=== PATIENT | female | born 1950 | race Caucasian/White ===

== ENCOUNTER → 2019-11-06 11:30 | Outpatient (BNVA) | payer MEDICARE, OTHER, SELFPAY | PROVIDERS: Visit Provider Obstetrics & Gynecology | DX: N81.10 Cystocele, unspecified (principal) | CPT/HCPCS: 80053; 81001; 87077; 87086; 87184 ==

== ENCOUNTER 2020-01-09 13:12 | Observation (INO) | payer MEDICARE, OTHER, SELFPAY ==
[2020-01-07 10:32] LABS: Coronavirus Lab Test PTC Negative
[2020-01-09] VITALS (18 sets, daily range): BP systolic 89–147; BP diastolic 47–77; PULSE 59–75; RESP 16–24; TEMP 36.1–37.2; O2SAT 93–100; BMI 27.4
--- NOTE | 2020-01-09 07:58 | P.HPUD_ITS ---
Surgery/Procedure H&P Update DATE OF PROCEDURE: January 09, 2020 DATE H&P PERFORMED: 12/23/19 H&P UPDATE INFORMATION: I have reviewed H&P completed within last 30 days, I have examined patient prior to procedure, No changes to prior documentation and H&P is in [facility] EMR on date indicated PLANNED PROCEDURE: Operation Date: 01/09/20 08:00 Proposed Procedures p Total Vaginal Hysterectomy [id number], 85674, 75947, 11280 N81.4(Not Applicable) - Bhavna Thompson MD s Anterior Repair(Not Applicable) - Bhavna Thompson MD s Posterior Repair(Not Applicable) - Bhavna Thompson MD s Laparoscopic Uterosacral Ligament Suspen(Not Applicable) - Bhavna Qiu MD s Cystoscopy(Not Applicable) - Bhavna Thompson MD s Suprapubic Catheter Placement(Not Applicable) - Bhavna Thompson MD s Salpingo-Oophorectomy (Vaginal)(Bilateral) - Bhavna Thompson MD
--- NOTE | 2020-01-09 08:00 | ANES.PREANE2 ---
Pre-Anesthetic Assessment Pre-Anesthetic Assessment: Height/Weight: Height 1.63 m Weight 72.575 kg Temp Pulse Resp BP Pulse Ox 97.8 F 73 18 147/77 98 01/09/20 06:51 01/09/20 06:51 01/09/20 06:51 01/09/20 06:51 01/09/20 06:51 Proposed Procedure: Operation Date: 01/09/20 08:00 Proposed Procedures p Total Vaginal Hysterectomy [id number], 05208, 87379, 63292 N81.4(Not Applicable) - Bhavna Thompson MD s Anterior Repair(Not Applicable) - Bhavna Thompson MD s Posterior Repair(Not Applicable) - Bhavna Thompson MD s Laparoscopic Uterosacral Ligament Suspen(Not Applicable) - Bhavna Thompson MD s Cystoscopy(Not Applicable) - Bhavna Thompson MD s Suprapubic Catheter Placement(Not Applicable) - Bhavna Thompson MD s Salpingo-Oophorectomy (Vaginal)(Bilateral) - Bhavna Thompson MD Was Beta Marli taken within 24 hours: N/A Last intake: Intake Last Liquid Date 01/08/20 Last Liquid Time 20:00 Last Solid Date 01/08/20 Social: Social History: No alcohol and No tobacco Exam: Pre-Anes Outpt Exam: alert, oriented x 3, clear to auscultation bilaterally and regular rate & rhythm Airway: Submandibular: Other (receeding mandible) Cervical ROM: WNL Pulmonary: Pulmonary: None reported CV/HEM: CV/HEM: HTN : : None reported Hepatic: Hepatic: None reported GI: GI: None reported Metabolic: Metabolic: None reported Musc/skel: Musc/skel: None reported Neuropsych: Neuropsych: None reported Anesthetic Plan: ASA status: 2 Anesthesia: General PFSH Anesthesia PFSH: Medical History (Updated 12/23/19 @ 16:25 by José Miguel Menjivar MD) Hypertension Diagnosed in her 50s and is controlled with medication. No pertinent past medical history Denies history of: lung, liver, kidney, thyroid, heart or kidney problems, diabetes, DVT/PE, bleeding or clotting disorders. PCP: MARTHA Jackson Surgical History Hx of sinus surgery In 1995 S/P cholecystectomy Laparoscopic procedure in 2013 S/P knee surgery bilateral knee surgery for meniscus tear in 2014 and 2015. Status post tubal ligation 1982- procedure. 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 Data Anesthesia CBC & Chem 7: 01/09/20 07:18 01/09/20 07:18 Other Labs: Laboratory Results - last 48 hr 01/06/20 11:45 Nasal/Oral COVID-19 PCR Negative Cardiac Studies: No Data to Display
[2020-01-09 08:02] LABS: Basophils # 0.1 10^3/uL (0.0-0.1); Basophils % 0.9 %; Eosinophils # 0.2 10^3/uL (0.0-0.8); Eosinophils % 3.1 %; Hematocrit 43.1 % (37.0-47.0); Hemoglobin 13.6 g/dL (11.5-15.3); Lymphocytes % 14.5 %; Mean Corpuscular HGB Conc 31.6 g/dL (30.0-36.0); Mean Corpuscular Hemoglobin 29.1 pg (28.0-34.0); Mean Corpuscular Volume 92.1 fL (81-99); Mean Platelet Volume 10.9 fL (7.4-10.4); Monocytes # 0.5 10^3/uL (0.2-0.9); Neutrophils # 5.07 10^3/uL (1.8-7.7); Neutrophils % 74.1 %; Nucleated Red Blood Cells % 0 %; Platelet Count 215 10^3/cmm (130-400); Red Blood Count 4.68 10^6/uL (4.1-5.3); Red Cell Distribution Width 13.2 % (12.1-15.1); White Blood Count 6.8 10^3/uL (4.0-10.0)
[2020-01-09 08:12] LABS: Alanine Aminotransferase 13 U/L (0-33); Albumin Level 4.5 g/dL (3.5-5.2); Alkaline Phosphatase 120 IU/L (35-105); Aspartate Amino Transferase 28 U/L (0-32); Blood Urea Nitrogen 17 mg/dL (8-23); Calcium 9.5 mg/dL (8.5-10.5); Carbon Dioxide 25 mmol/L (22-29); Chloride 105 mmol/L (98-107); Creatinine Clr Calc Pharmacy 62.9775; Globulin 3.2 g/dL (1.3-4.6); Glucose 121 mg/dL (65-115); Osmolality Calculated 292 mOsm/kg (285-295); Sodium 142 mmol/L (136-145); Total Protein 7.7 g/dL (6.6-8.7)
[2020-01-09] MEDS: cetylpyridinium Lozenge 1 EACH MUCOUS MEM (08:29)
--- NOTE | 2020-01-09 08:30 | SUR.PREOP ---
pyridium 200mg po given at 0829
[2020-01-09] MEDS: clindamycin 900 MG/50 ML PREMIX 100 MG IV (08:40)
[2020-01-09] MEDS: vasopressin 20 unit/mL INJ INJECTION ×2 (09:00→12:15)
--- NOTE | 2020-01-09 09:13 | SUR.OPER ---
Called and notified Daughter of surgical progress.
--- NOTE | 2020-01-09 10:19 | SUR.OPER ---
Called and left message for daughter with surgery progress update.
--- NOTE | 2020-01-09 12:43 | PM.OP ---
Operative Report Date of procedure: January 09, 2020 Pre-op Diagnosis: Complete uterovaginal prolapse with enterocele Post-op Diagnosis: Complete uterovaginal prolapse with enterocele Procedure Done: Colpopexy-intraperitoneal vaginal approach (uterosacral ligament suspension), Posterior colporrhaphy, Cystoscopy with temporary bilateral ureteral stents, Suprapubic catheter insertion. Surgeon: José Miguel Menjivar Marketing Communications Leader: Bhavna Thompson Anesthesia: General Estimated blood loss (mL): 150 IV fluids (mL): 1,800 Complications: None Findings: Complete uterovaginal prolapse with enterocele present. Sigmoidal adhesions along the left pelvic sidewall. Brief History: Patient is a 69-year-old white female 4, para 2-0-2-2 who is postmenopausal. She presented to the office due to vaginal prolapse. She was evaluated by Dr. Irby and was diagnosed with complete uterovaginal prolapse. I then evaluated her on 12/23/[address] Irby not performing all of the procedures that patient needed done. As a result we will both be performing a portion of the surgery and assisting with the other. Procedure: Patient was taken to the operating room where general anesthesia was obtained. She was prepped and draped in usual sterile fashion in dorsal supine position with legs in Gamaliel style stirrups. Sequential compression boots been placed prior to starting the case. Patient was evaluated under anesthesia and noted to have a complete uterovaginal prolapse. Dr. Irby initially performed a vaginal hysterectomy with right salpingo-oophorectomy. I was present and assisted her with this portion of the case. Patient was then turned over to myself with Dr. Irby assisting me. Cystoscopy was performed after the hysterectomy due to the degree of prolapse. Both ureters were identified as effluxing well with indigo carmine being used intravenously. No bladder masses were noted. Trabeculations of the bladder was noted. Due to the degree of prolapse and inability to identify uterosacral ligaments, decision was made to place temporary ureteral stents for ureter identification. A guidewire was passed through the ureteral meatus and passed up through the ureter. An open end ureteral access catheter size 6 Angolan stent was passed over the guidewire and the and left out of the urethra. This was repeated on the contralateral side in a similar fashion. Cystoscope was removed and Thomas catheter reinserted. On the right side, ureter was identified by palpating the ureter with stent present. Posterior to this in the area of the uterosacral ligament, high in the pelvis, the tissue was grasped with an Allis clamp. 0 Ethibond suture was passed through this tissue and with tension good support was noted to the stitch. The suture was then held. On the left side, the ureter was identified. However, at the level of the of the 0 Ethibond suture to be placed in the uterosacral ligament, sigmoid bowel was noted to be adherent along the pelvic sidewall and as a result decision was made not to place uterosacral ligament suspension stitch on the left side. Case was turned back over to Dr. Irby who performed the anterior vaginal repair. Case was turned back over to myself. At this point an enterocele repair was performed. A wedge shaped area was excised along the posterior vaginal cuff including the vaginal mucosa and the internal peritoneum. This was all reapproximated using 0 Vicryl suture in a running fashion. This significantly narrowed the posterior cuff. The remaining portion of the posterior vaginal cuff was oversewn with 0 Vicryl suture in a running locking fashion incorporating the peritoneum to the vaginal mucosa. The cuff itself was closed in a vertical fashion using interrupted stitches of 0 Vicryl suture. The 0 Ethibond was secured to the vaginal cuff at the midline level of the closure. The vaginal cuff was then pushed in a cephalad direction towards the uterosacral ligament. The suspension stitch was then tied and elevated the vaginal cuff well. The posterior vaginal wall was inspected and this significantly reduced her rectocele. However, she did have a gaping vaginal introitus and decision was made to proceed with a perineorrhaphy and a posterior repair of the lower portion of the posterior vaginal wall. The perineum and posterior vaginal wall were injected with dilute Pitressin solution. A wedge shaped piece of skin was excised from the perineum. The vaginal mucosa was undermined in the midline over approximately 3 cm length along the posterior wall and the skin opened. The skin was dissected from the rectovaginal fascia in the area. Using 2-0 Vicryl suture, the rectovaginal fascia was plicated in the midline. Excess vaginal mucosa was excised. The skin of the posterior vaginal wall was reapproximated using 3-0 Vicryl suture in a running locking fashion.the perineum was further built-up with interrupted stitches of 2-0 Vicryl suture. stitch was placed into bulbocavernosus bilaterally and tied bring this together and further supporting the perineum. The superficial portion of the perineum was reapproximated using 3-0 Vicryl suture in a running fashion. Skin was reapproximated using 3-0 Vicryl suture in a subcuticular fashion. Ureteral stents were removed. The cystoscope was then inserted and bladder inspected. No bladder masses, suture material, or bladder injuries were noted. Both ureters were noted to be effluxing urine and indigo carmine. The bladder was then further distended to approximately 500 mL volume. Using the cystoscope as a guide, suprapubic catheter was inserted. A stab incision was made into the anterior abdominal wall approximately 1 fingerbreadth above the pubic symphysis in the midline. The suprapubic catheter was placed through the trocar and with a ureteral stylette present. The trocar was passed through the abdominal wall and into the dome of the bladder. Trocar was removed leaving the catheter present within the bladder. The stylette was removed and balloon was inflated. Catheter was secured to the abdominal wall using 3-0 nylon suture. Vagina was packed with 1 inch Nu Gauze. Patient tolerated the procedure well. Sponge needle and instrument counts were correct.
--- NOTE | 2020-01-09 12:59 | P.OP_ITS ---
Operative Report Date of procedure: January 09, 2020 OPERATIVE REPORT Date of surgery: 01/09/2020 Date of dictation: 01/09/2020 Preoperative diagnosis: Complete procidentia Postoperative diagnosis/findings: Grade 4 uterovaginal prolapse, cystoscopy showed bilateral ureteral jets Procedure done: Total vaginal hysterectomy, right salpingo-oophorectomy, anterior colporrhaphy; uterosacral ligament suspension, posterior repair and perineorrhaphy and placement of suprapubic catheter performed by Dr. Menjivar---gideon lopez see separate operative report for these Specimens removed/disposition of specimens: Uterus, cervix, right fallopian tube and ovary Surgeon: Dr. Bhavna Irby Physician health center assistant: Dr. Menjivar Anesthesia: General endotracheal tube anesthesia Estimated blood loss: 150 ml Intravenous fluids: 1800 mL of LR Urine output: 800 mL of blue-tinged urine at the end of procedure Medications: As per anesthesia records Complications: None, patient was extubated and taken to the recovery room in a stable condition. Indication for surgery: 69-year-old 4 para 2-0-2-2 with complete procidentia desired repair. She presented on 01/09/2020 for schedule surgery. PROCEDURE: After consents were obtained, she was taken to the operating room where she was placed under general endotracheal tube anesthesia without any difficulty. She was placed supine on the table in lithotomy position. Her legs were placed in stirrups and care was taken to avoid pressure points. Exam under anesthesia revealed complete procidentia. She was then prepped and draped in usual sterile fashion. Thomas Catheter was placed. Patient's legs were raised, cervix was grasped on the anterior and posterior lips with clamps. 4 Units of Pitressin diluted in 10 mL of saline was injected around the cervix for hydrodissection circumferentially. A scalpel was used to make an incision starting posteriorly and then extending anteriorly around the cervix. Love scissors was then used to separate the overlying tissue from the cervix. The overlying tissue was also pushed back bluntly using a 4 x 4 gauze. Attention was turned posteriorly where the posterior cul-de-sac was sharply entered and the peritoneum tagged to the vaginal mucosa in the midline. Markell- Osborn clamps were used first on the right and then the left uterosacral ligaments. This process was repeated again proceeding up the cervix. The bladder was held up, peritoneum was identified and intraperitoneal entry anteriorly was made. This was aided by a finger that was wrapped around the uterus anteriorly. A vaginal retractor was placed into the peritoneum thus protecting the bladder from site of surgery. Care was taken to stay medial. Surgery was continued by clamping the parametria on both sides and then cutting and suture ligating with 0 Vicryl suture bilaterally until the area of the ovarian ligament and fallopian tube was reached. Once clamps were placed completely across the cornua of the uterus, this last pedicle was cut and the uterus was then removed. The cornual pedicle were suture ligated and free tied a second time. The pedicles were inspected and noted to be hemostatic. The ovaries and tubes were inspected and appeared normal. The left ovary and tube appeared to be adherent onto the pelvic sidewall near bowel adhesions and were hard to reach vaginally. The right fallopian tube were easily visualized and grasped with a Atiya and clamps were placed behind the mesosalpinx and this tissue was clamped. The remaining portions of the broad ligament were serially clamped, cut, proceeding in a sequential fashion until the IP ligament was clamped cut and tied. Good hemostasis was noted on the right pedicle. Cystoscopy performed at this time showed bladder with signs of cystitis and no lesions defects or sutures noted. Bilateral ureteral jets noted x3 At this point Dr. Menjivar performed uterosacral ligament suspension after stenting of bilateral ureters. At this time we proceeded with anterior repair. Pitressin was injected into the anterior vaginal mucosa after identifying made urethral point. Grasping the open vaginal cuff Metzenbaum scissors was used to sharply create a plane between the mucosa and the hydrodissected tissue around bladder. This was done without difficulty. We proceeded superiorly creating a plane and then incising the vaginal mucosa above the plane. In this way the anterior vaginal mucosa from mid urethral plane upto the open vaginal cuff was opened. The bladder was then dissected off the anterior vaginal tissue with a combination of sharp and blunt dissection until it was up to the lateral vaginal angles. . Anterior repair was then continued in 2 layers with 2-0 Vicryl sutures to grasped the lateral fascial tissue first on the right side and then on the left side interrupted sutures. The sutures were then tied proceeding from the deepest sutureExcess overlying vaginal tissue was trimmed and the vaginal tissue was reapproximated using 2-0 Vicryl in a continuous interlocking fashion thus closing the anterior vaginal tissue up to the vaginal cuff. The vaginal cuff was closed in a vertical fashion using interrupted [id number] stitches of [address] Menjivar Thomas catheter was removed and cystoscopy performed. Cystoscopy was performed and no lesions, defect or suture was noted in the bladder. Both ureters were noted to be effluxing urine well. Suprapubic catheter was placed by Dr. Menjivar 1 inch vaginal packing with lubrication was placed into the vagina. A Thomas catheter was kept in place. The patient was extubated without any difficulty and taken to the recovery room in a stable condition. Pre-op Diagnosis: Complete uterovaginal prolapse with enterocele
--- NOTE | 2020-01-09 12:59 | SUR.PHASEI ---
PT SLEEPING WITH GOOD RESP NOTED VSS , PT MOVES TO TOUCH BUT DOES NOT AWAKE, ABD SOFT TONY PAD D/I, BILAT SCDS ON PT HAS A SUPRA PUBIC CATH WITH SMALL AMT PINK DRAINAGE, DRAIN SPONGE AND TAPE TO LOWER ABD SITE. IV PATENT
--- NOTE | 2020-01-09 13:06 | SUR.PHASEI ---
PT AWAKES TO TOUCH, PT ON RA TRIAL, PT VERBALLY DENIES PAIN AND NAUSEA, VSS IV PATENT , SUPRAPUBIC WITH APPROX 5ML LT PINK URINE.
--- NOTE | 2020-01-09 14:06 | SUR.PHASEI ---
1400 PT TO FLOOR AWAKE ALERT MOVES SELF TO BED WITH NO ASSIST, PT C/O OF URGENCY AND BACK DISCOMFORT PT INFORMED OF VAGINAL PACKING AND THAT IT CAUSES PRESSURE TO LOWER BACK AND FEELING OF URGENCY PT STILL ONLY HAS APPROX 30 ML LT PINK URINE IN SUPRA PUBIC CATHETER. DRESSING D/I PT TAKING OCC ICE CHIPS , ABD SOFT, HANDOFF AT BEDSIDE IV TO LT AC PT IV ALMOST EMPTY NOW PT KEEPS FLEXING ARM. FLOOR NURSE TO GET NEWLY ORDERED IV STARTED SOON. BP SYSTOLIC 103/57 HR 67, SATS 97% ON 2LNC.
[2020-01-09] MEDS: dextrose 5%-lactated ringers 1,000 ML 125 ML IV ×2 (14:08→21:49)
[2020-01-09] MEDS: ondansetron 2 mg/ML SDV 2 mL 4 MG IVP ×2 (14:58→19:48)
[2020-01-09] MEDS: HYDROcodone-acetaminophen 5-325 mg Tablet PO (14:59)
[2020-01-09] MEDS: docusate sodium 100 mg Capsule PO (17:07)
[2020-01-09] MEDS: HYDROmorphone 1 mg/mL INJ 1 mL 1.5 MG IVP (19:37)
[2020-01-10] VITALS: BP 103/60; PULSE 67; RESP 18; TEMP 36.7; O2SAT 92
[2020-01-10] MEDS: sodium chloride 0.9% 500 ML IV (04:34)
[2020-01-10] MEDS: HYDROcodone-acetaminophen 5-325 mg Tablet PO ×2 (04:52→12:19)
--- NOTE | 2020-01-10 05:01 | PC.NURSE ---
SHIFT SUMMARY Did well tonight. Had quite abit of lower abd pain at beginning of shift and was very uncomfortable. Consented to taking some IV Dilaudid and this worked very well. Suprapubic cath intact and has had dark yellow drainage around it with dressing reinforced couple of times. Small amt vag bleeding. Packing removed this am. Cristal pad in place. Pt up to ambulate duarte and in chair. Oral activity well and was given po Hydrocodone for pain after ambulation. Had only 350ml urine output dark steven/bloody until packing removed and stood to walk then had additional 250ml output. 500ml NS bolus is running as well this am. Is taking po fluids without nausea c/o
[2020-01-10 05:06] VITALS: BP 118/57; PULSE 69; RESP 20; TEMP 37.1; O2SAT 93
[2020-01-10 05:29] LABS: Hematocrit 35.6 % (37.0-47.0); Hemoglobin 10.9 g/dL (11.5-15.3); Mean Corpuscular HGB Conc 30.6 g/dL (30.0-36.0); Mean Corpuscular Hemoglobin 29.9 pg (28.0-34.0); Mean Corpuscular Volume 97.8 fL (81-99); Mean Platelet Volume 10.6 fL (7.4-10.4); Platelet Count 202 10^3/cmm (130-400); Red Blood Count 3.64 10^6/uL (4.1-5.3); Red Cell Distribution Width 13.4 % (12.1-15.1); White Blood Count 14.3 10^3/uL (4.0-10.0)
[2020-01-10] MEDS: dextrose 5%-lactated ringers 1,000 ML 125 ML IV (05:39)
[2020-01-10 08:00] VITALS: BP 107/58; PULSE 54; RESP 16; TEMP 36.7; O2SAT 95
[2020-01-10] MEDS: docusate sodium 100 mg Capsule PO (08:39)
--- NOTE | 2020-01-10 09:54 | ANE.PACU2 ---
Inpatient post-anesthesia follow up: Airway intact: Yes Vital signs: Temperature 98.1 F Pulse Rate 54 Respiratory Rate 16 Blood Pressure 107/58 Pulse Oximetry 95 Oxygen Delivery Me thod Nasal Cannula Oxygen Flow Rate 2 Fraction of Inspir ed Oxygen Hydration adequate: Yes Nausea and vomiting: No Pain level: 2
[2020-01-10 12:00] VITALS: BP 130/69; PULSE 63; RESP 17; TEMP 36.7; O2SAT 96
--- NOTE | 2020-01-10 12:57 | PC.CHAP ---
Pastoral Care Encounter/Spiritual Assessment Type of Contact [] Declined photographic plate maker visit [] Patient/Family/Request visit [] Outpatient visit [] Follow-up visit [] Physician referral [] Code/Alert [xx] Routine visit [] Staff referral [] Actively dying [] Patient sleeping [] Family support [] [] Out of room [] Palliative care [] [] Receiving care in room [] Pre-surgical visit [] Trauma [] Long length of stay [] ICU visit [] Other: Relational/Emotional Strength [xx] Patient feels connected with others/family/visitors/staff [] Distress [] Loneliness/isolation [] Abandonment Spirituality of Patient [xx] Person of Noy [xx] Attends Caodaism of their [place] [xx] Believes in Prayer [xx] Reads Bible or Orthodox materials [] There are Spiritual issues to be addressed Optical Lab Technician Interventions [xx] Prayer [xx] Active listening [xx] Non-anxious presence [] Spiritual/emotional support [] Crisis/trauma care [] Spiritual counseling [] Bereavement support [] Provided bereavement packet [] Provided Bible/devotional materials [] Provided toy/stuffed animal, coloring book to patient or family member [] Provided Communion [] Anointing/[place] [] Salvation [xx] Completed spiritual assessment [] Other: Impact on Illness or Injury [] Angry [] Fearful [] Anxious [] Often cries [] Exhaustion [] Unable to work [] Unable to attend mandaeism [] Unable to walk/stand [] Unable to read [] Unable to drive [] Unable to eat/drink [] Unable to sleep [] Unable to be with family [] Patient intubated [] Other: Summary Betito was very talkative about her christianity and her noy in God's healing power. She was very pleasant to visit with and was delighted to have a visitor. She expects to be discharged by end of day. Time spent with patient 17 minutes Optical Lab Technician Debora Nelson
--- NOTE | 2020-01-10 13:14 | P.DS_ITS ---
Discharge Providers Date of Admission: 01/09/20 13:12 Date of Discharge: January 10, 2020 Attending Provider at Admission: Bhavna Thompson MD Attending Provider at Discharge: José Miguel Jimenez MD Primary Care Provider: Lucas Emerson Reason for Visit Reason for Visit: Uterovaginal prolapse Hospital Course Discharge Summary: Preoperative course: Ms. Noa Solis is a 69-year-old who presented on 01/09/2020 for scheduled surgery for complete procidentia. She had no new symptoms or concerns prior to surgery. She desires reconstructive surgery. HOSPITAL COURSE: She underwent an uncomplicated total vaginal hysterectomy, uterosacral ligament suspension, ureteral stent placement and removal, anterior repair, posterior repair, perineorrhaphy and placement of suprapubic catheter on 12/09/2019--please see operative reports for details. Surgery was performed by Dr. Menjivar and Dr Irby. She did well on postoperative day 0 and was ambulating well, tolerating clear liquid diet. Pain was well-controlled with by mouth and IV pain medication. She denied nausea, vomiting, fever, chills, shortness of breath, leg pain. She had minimal vaginal bleeding with vaginal packing. Thomas catheter was kept overnight and she had adequate urine output. On postoperative day #1 she continued to do well with stable vital signs and stable hemoglobin at 10.4. Suprapubic Thomas catheter was removed and patient was able to void with minimal residual noted on bladder scan. She ambulated well started passing flatus and then tolerated a regular diet. She was discharged home on postoperative day #1 in a stable condition. Warning signs for cuff infection, DVT/PE were reviewed with her. Post surgical activity restrictions were also reviewed with her at all her questions were answered to her satisfaction. She was also noted to have a urinary tract infection-asymptomatic from a catheterized sample on day of surgery with 90,000 200,000 Enterococcus faecalis and was sent home on ampicillin. EXAM AT DISCHARGE: Gen.: No acute distress Heart: S1-S2 heard, regular rate and rhythm Lungs: Clear to auscultation bilaterally Abdomen: Soft, nondistended, no rebound, no guarding, Legs: No calf tenderness, no pedal edema CONDITION AT DISCHARGE: Stable Physical Exam Urinary Catheter Management^: Suprapubic: Cath Placed During This Visit: yes Urinary Catheter Date of Insertion: 01/09/20 Urinary Catheter Time of Insertion: 12:33 Discharge Data Data Completed and Pending: Pending at discharge Category Date Time Status Urine Culture Rou padma Lab 01/09/20 07:58 Results Pathology: Surgic al [PTH] Routine Pth 01/09/20 12:54 Received Labs from last 24 hours 01/10/20 05:20 WBC 14.3 H RBC 3.64 L Hgb 10.9 L Hct 35.6 L MCV 97.8 D MCH 29.9 MCHC 30.6 RDW 13.4 Plt Count 202 MPV 10.6 H Vitals: Last Vital Signs Temp 98.1 F 01/10/20 12:00 Pulse 63 01/10/20 12:00 Resp 17 01/10/20 12:00 BP 130/69 01/10/20 12:00 Pulse Ox 96 01/10/20 12:00 Discharge Plan Discharge Patient Disposition: Home Condition: Stable Prescriptions: New ibuprofen 800 mg Tablet 800 mg PO TID PRN (Reason: pain) Qty: 40 RF: 0 amoxicillin 500 mg tablet 500 mg PO TID 7 Days Qty: 21 RF: 0 hydrocodone-acetaminophen 5-325 mg Tablet 1 tab PO Q6H PRN (Reason: Moderate To Severe Pain) Qty: 25 RF: 0 Continued amlodipine 5 mg tablet 10 mg PO DAILY RF: 0 estradiol [Estrace] 0.01 % (0.1 mg/gram) cream See Rx Instructions VAGINAL .twice weekly Qty: 42.5 RF: 0 Discharge Orders: Discharge Order (Routine); Ordered 01/10/20 Ordered By: José Miguel Menjivar Referrals: Bhavna Thompson MD [Physician] - (2 and 6 weeks post op appointments) Discharge Diet: Regular Discharge Activity: Limit activity as instructed Patient Instructions: Hydrocodone/Acetaminophen (By mouth), Amoxicillin (By mouth), Vaginal Hysterectomy (DC), OB Abdominal Surgery - [facility] Discharge Date/Time: 01/10/20 16:00 Discharge Attestations Time Spent in Discharge Care*: greater than 30 min Quality Metrics Clinical Quality Measures During this hospital stay, did patient experience: None Coding Level of Care Code Acute Steam And Gas Turbines Assembler for Carolyn Bautista
[2020-01-10 16:29] VITALS: BP 130/69; PULSE 63; RESP 17; TEMP 36.7; O2SAT 96
== END 2020-01-10 16:00 | disposition home or self-care (01) ==
LOC: MEDSURG 13:12
PROVIDERS: Obstetrics & Gynecology; Admitting Provider Obstetrics & Gynecology; PCP Physician Assistant Medical; Visit Provider Obstetrics & Gynecology
PROC: (CPT 51040; principal; 2020-01-09 08:00)
PROC: 0JQC0ZZ Repair Pelvic Region Subcutaneous Tissue and Fascia, Open Approach (ICD-10-PCS; CPT 57240; 2020-01-09 08:00)
PROC: (CPT 57250; 2020-01-09 08:00)
PROC: 0TJB8ZZ Inspection of Bladder, Via Natural or Artificial Opening Endoscopic (ICD-10-PCS; CPT 52000; 2020-01-09 08:00)
PROC: (CPT 51102; 2020-01-09 08:00)
PROC: (CPT 58720; 2020-01-09 08:00)
PROC: 0USG4ZZ Reposition Vagina, Percutaneous Endoscopic Approach (ICD-10-PCS; CPT 57425; 2020-01-09 08:00)
DX: N81.3 Complete uterovaginal prolapse (principal); N73.6 Female pelvic peritoneal adhesions (postinfective); I10 Essential (primary) hypertension; Z88.2 Allergy status to sulfonamides
CPT/HCPCS: 51040; 52332; 57260; 57283; 58262; 12345; 36415; 80053; 85025; 85027; 86850; 86900; 87077; 87086; 87186; 87635; 88307; 96361; 96365; 96375; G0378; J1100; J1170; J1580; J1940; J2405; J2704; J3010; J3490; J7040

== ENCOUNTER 2021-09-21 05:45 | Inpatient (IN) | payer MEDICARE, OTHER, SELFPAY ==
[2021-09-21] VITALS (21 sets, daily range): BP systolic 98–142; BP diastolic 59–81; PULSE 61–80; RESP 6–20; TEMP 36.2–37.1; O2SAT 91–100; BMI 30.2
--- NOTE | 2021-09-21 | SCC_ITS ---
Procedure done: Open reduction internal fixation lefthip with intramedullary device 67.8 seconds of fluoroscopic guidance, for a cumulative dose of 12.35 mGy, was provided to Dr. Wolff by the radiology department. C-arm images of the LEFT hip were saved for the patient's permanent record. [facility]
--- NOTE | 2021-09-21 | XR_ITS ---
WS: [id number] XR hip LT 2-3V wo/w pel* [id number] REASON FOR EXAM: hip fracture FINDINGS: Intertrochanteric left hip fracture with fixation by intramedullary femoral adalid and large femoral nec k nail. Surgical appliances and fracture fragments are in proper position and alignment. XR/XR hip LT 2-3V wo/w pel* [id number] IMPRESSION: Internal fixation of left hip fracture with no abnormality.
[2021-09-21] MEDS: morphine 4 mg/mL SDV 1 mL 2 MG IVP (08:55)
[2021-09-21] MEDS: sodium chloride 0.9% 1,000 ML 70 ML IV (08:55)
--- NOTE | 2021-09-21 09:21 | PM.HP ---
Providers/Chief Complaint Admitting Physician: Lev Wolff MD Primary Care Provider: Lucas Emerson Chief Complaint: Hip Fracture History of Present Illness Noa De Los Santos is a 71 year old female who sustained a fall at home last night when she lost her balance with immediate onset left hip pain. She was initially seen at [facility]. There radiographs were obtained showing a left intratrochanteric hip fracture. She was direct admitted here to the hospital for management of her fracture. She previously was fully ambulatory and uses no ambulatory aids. Medications/Allergies Home Medications Medication Instructions Recorded Confirmed Last Taken Type amlodipine 5 mg tablet 10 mg PO DAILY tab 11/25/19 09/21/21 09/20/21 06:00 History estradiol (Estrace) See Rx Instructions VAGINAL 01/22/20 02/19/20 Unknown Rx .weekly #42.5 gm Allergies Allergy/AdvReac Type Severity Reaction Status Date / Time cephalexin [From Keflex] Allergy hives Verified 02/19/20 07:54 Sulfa (Sulfonamide AdvReac swelling Verified 02/19/20 07:54 Antibiotics) PFSH Acute PFSH: Medical History (Updated 09/21/21 @ 09:25 by Lev Wolff MD) Hypertension Diagnosed in her 50s and is controlled with medication. No pertinent past medical history Denies history of: lung, liver, kidney, thyroid, heart or kidney problems, diabetes, DVT/PE, bleeding or clotting disorders. PCP: MARTHA Jackson Surgical History Hx of sinus surgery In 1995 S/P cholecystectomy Laparoscopic procedure in 2013 S/P knee surgery bilateral knee surgery for meniscus tear in 2014 and 2015. Status post hysterectomy 01/09/2020--total vaginal hysterectomy, right salpingo-oophorectomy, uterosacral ligament suspension, anterior and posterior repair with perineorrhaphy and suprapubic catheter placement by Dr. Irby and Dr. Menjivar at [facility] [place]. -Pathology showed benign uterus, cervix, right ovary and tube without any sign of malignancy or hyperplasia. Status post tubal ligation 1982- procedure. 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 Vitals/I&O/Wt Last Vital Signs Temp 98.0 F 09/21/21 06:13 Pulse 73 09/21/21 06:13 Resp 18 09/21/21 08:55 BP 127/72 09/21/21 06:13 Pulse Ox 99 09/21/21 06:13 Weight last 48 hrs Weight 176 lb 2 oz Physical Exam Narrative: HEAD: Normocephalic/atraumatic. NECK: Soft supple nontender. HEART: Normal heart sounds, regular rhythm. CHEST: Clear to auscultation. ABDOMEN: Soft nontender nondistended. Clear shortening and external rotation of the left femur Pain with any motion of the left hip Strong left dorsalis pedis pulse Flexes and extends left toes and ankle Left lower extremity sensation intact to light touch. Data Other data: I reviewed her radiographs of the left hip brought with the patient from [place]. The patient has a left intratrochanteric fracture with a varus alignment of the neck and long head. The films are a bit underpenetrated and only an AP radiograph is really a sufficient quality for evaluation for A&P Assessment and plan (1) Intertrochanteric fracture of left hip: The patient has unstable left intertrochanteric hip fracture. She previously was fully ambulatory and certainly would benefit from open reduction internal fixation. The patient is seen at the bedside with her daughter who is her radiology asst here in the clinic. I discussed options with the patient.. I told the patient we could treat this nonoperatively but certainly they would be at risk for medical problems without surgery. Theywould have problems with pain that would require narcotics for pain control. They would require a long period of bedrest graphic manager risk for pneumonia and skin breakdown. I discussed surgical intervention with the patient. I told them with open reduction internal fixation they should be able to be mobilized and resume ambulatory status. We can eliminate the problems associated with prolonged bed rest and would have better control of pain. Certainly there would be inherent risk with surgery. These would would include the risk of cardiac complications, stroke, infection, and even . I discussed risk of any orthopedic implant including nonunion, malunion, a component failure. I discussed the possible need for component removal. I discussed risk of deep venous thromboses and pulmonary emboli that are present with any treatment and the importance of DVT prophylaxis. The patient expressed good understanding of alternative treatments, seem to comprehend, and agrees to surgical intervention. Status: Acute Attestations Medical Necessity Statement*: Patient awaiting surgery today Coding Level of Care Code Acute Social Human Services Assistants for Carolyn Bautista Diagnoses Intertrochanteric fracture of left hip S72.142A
--- NOTE | 2021-09-21 09:33 | ECG_ITS ---
[facility] Test Date: 2021-09-21 Pat Name: Noa De Los Santos Department: Room: 270 Gender: Female Sales Department Clerk: : 1950 Requested By: Wallace Fermin Order Number: [id number] Jean Marie MD: Biju Irwin M.D. Measurements Intervals [place] Rate: 64 P: 97 SC: 174 QRS: 8 QRSD: 92 T: 14 QT: 411 QTc: 427 Interpretive Statements SINUS RHYTHM MINIMAL ST DEPRESSION [0.025+ mV ST DEPRESSION] No previous ECG available for comparison Electronically Signed On 09-21-2021 17:31:03 CDT by Biju Irwin M.D. [email or web address] branch hospitalAdapticsblanchard valley health system [facility] [email or web address]/store/[id number]
--- NOTE | 2021-09-21 09:33 | XR_ITS ---
WS: [id number] XR chest 1V portable [id number] REASON FOR EXAM: fall FINDINGS: Moderate tortuosity and ectasia of the thoracic aorta without aneurysmal dilatation. Heart size is at the upper limits of normal. Calcified granulomatous disease bilaterally. No active pulmonary parenchymal or pleural disease. Moderate changes of degenerative spondylosis in the mid and lower thoracic spine. XR/XR chest 1V portable [id number] IMPRESSION: No acute chest abnormality.
--- NOTE | 2021-09-21 09:37 | PM.CONSULT ---
Providers/Reason For Consult Consulting Physician/Specialty*: Wallace Mireles MD, hospitalist Reason for Consult*: Medical management Attending Physician: Lev Wolff MD Primary Care Provider: Lucas Emerson History of Present Illness History of Present Illness Noa De Los Santos is a 71 year old female who presents from [facility] with history of legs giving out and sustaining a left intertrochanteric hip fracture. She denies loss of consciousness, or other injuries other than a small skin abrasion left elbow. She denies any head or neck pain. She remembers the entire fall, and does not believe she tripped. She attributes her weakness in her legs due to arthritis which she has been having trouble with lately. She reports problems with anesthesia in the past, with prolonged nausea and vomiting. She denies any severe allergy. Scopolamine has been used in the past to try to help with postanesthetic vomiting. She states it helped somewhat. She denies any history of heart disease, and typically can walk greater than 50 yards and up several flights of stairs without any significant shortness of breath. She denies any chest discomfort with any of this. She reports she has a history of asthma but it has not bothered her in quite some time. She will occasionally use some Primatene Mist. Review of Systems General: Denies: 10 or more systems reviewed and unremarkable except in HPI and below Const: Denies: fever(s) or chills Eyes: Denies: change in vision ENMT: Denies: throat pain Card: Denies: chest pain Resp: Denies: dyspnea GI: Denies: abdominal pain, hematochezia or melena : Denies: flank pain Musc: Reports: extremity pain; Denies: neck pain Skin/Breast: Denies: rash Neuro: Denies: headache(s) Psych: Denies: anxiety Endo: Denies: polyuria [place]/Lymph: Denies: easy bruising All/Imm: Denies: urticaria Medications/Allergies Home Medications Medication Instructions Recorded Confirmed Last Taken Type amlodipine 5 mg tablet 10 mg PO DAILY tab 11/25/19 09/21/21 09/20/21 06:00 History estradiol (Estrace) See Rx Instructions VAGINAL 01/22/20 02/19/20 Unknown Rx .weekly #42.5 gm Allergies Allergy/AdvReac Type Severity Reaction Status Date / Time cephalexin [From Keflex] Allergy hives Verified 02/19/20 07:54 Sulfa (Sulfonamide AdvReac swelling Verified 02/19/20 07:54 Antibiotics) Current Medications Generic Name Dose Route Start Last Admin Trade Name Freq PRN Reason Stop Dose Admin Sodium Chloride 1,000 mls @ 70 mls/hr 09/21/21 08:15 09/21/21 08:55 Sodium Chloride 0.9% IV 70 mls/hr .[id number] CHANDRIKA Administration Morphine Sulfate 2 mg 09/21/21 08:12 09/21/21 08:55 Morphine 4 Mg/Ml Sdv 1 Ml IVP 2 mg Q1H PRN Administration SEVERE PAIN PFSH Acute PFSH: Medical History (Updated 09/21/21 @ 09:42 by Wallace Mireles MD) Asthma Hypertension Diagnosed in her 50s and is controlled with medication. No pertinent past medical history Denies history of: lung, liver, kidney, thyroid, heart or kidney problems, diabetes, DVT/PE, bleeding or clotting disorders. PCP: MARTHA Jackson Surgical History Hx of sinus surgery In 1995 S/P cholecystectomy Laparoscopic procedure in 2013 S/P knee surgery bilateral knee surgery for meniscus tear in 2014 and 2015. Status post hysterectomy 01/09/2020--total vaginal hysterectomy, right salpingo-oophorectomy, uterosacral ligament suspension, anterior and posterior repair with perineorrhaphy and suprapubic catheter placement by Dr. Irby and Dr. Menjivar at [facility] [place]. -Pathology showed benign uterus, cervix, right ovary and tube without any sign of malignancy or hyperplasia. Status post tubal ligation 1982- procedure. 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 Vitals/I&O/Wt Last Vital Signs Temp 98.0 F 09/21/21 06:13 Pulse 73 09/21/21 06:13 Resp 18 09/21/21 08:55 BP 127/72 09/21/21 06:13 Pulse Ox 99 09/21/21 06:13 Weight last 48 hrs Weight 79.889 kg Physical Exam Narrative: General exam is a conversant white female, reporting some left hip pain HEENT: Pupils equally round. Oropharynx clear. Neck is supple no lymphadenopathy or thyromegaly Cardiovascular regular rate and rhythm, no murmur Lungs are clear to auscultation bilaterally no wheezes or crackles Abdomen is soft nontender positive bowel sounds. No obvious organomegaly exams Thomas noted Extremities no cyanosis clubbing or edema. Left lower extremity externally rotated and shortened. Cap refill brisk. Abrasion noted left upper extremity Skin no rash Neuro no focal deficits. Data Other Labs: Left intertrochanteric hip fracture noted on films from outside institution. No labs were done. A&P Assessment and plan (1) Intertrochanteric fracture of left hip: Patient presented with an intertrochanteric hip fracture, secondary to lower extremity weakness and/or imbalance. She denies any other injuries other than abrasion left upper extremity Overall there are no direct contraindications to surgery on history and physical It is important to get baseline laboratory studies, including CBC, CMP. Chest x-ray will be obtained secondary to fall. EKG will be obtained preoperatively. Status: Acute (2) Hypertension: Continue Norvasc postoperatively Status: Acute (3) Asthma: DuoNeb as needed can be used. She characterizes her asthma as not active in the last several months. Status: Acute Plan Other medical problems as noted in past medical history Full code Lovenox for DVT prophylaxis following surgery. Thank you for this consultation Consult Attestations Medical Necessity Statement: As per primary Coding Level of Care Code Acute Area Loss Prevention Manager for Carolyn Bautista Diagnoses Intertrochanteric fracture of left hip S72.142A Hypertension I10 Asthma J45.909
[2021-09-21 11:27] LABS: Basophils % 0.2 %; Hematocrit 36.6 % (37.0-47.0); Hemoglobin 12.2 g/dL (11.5-15.3); Lymphocytes # 0.5 10^3/uL (0.8-4.8); Mean Corpuscular HGB Conc 33.3 g/dL (30.0-36.0); Mean Corpuscular Hemoglobin 30.3 pg (28.0-34.0); Mean Platelet Volume 10.9 fL (7.4-10.4); Monocytes # 0.5 10^3/uL (0.2-0.9); Monocytes % 3.9 %; Neutrophils # 11.01 10^3/uL (1.8-7.7); Neutrophils % 91.5 %; Nucleated Red Blood Cells % 0 %; Platelet Count 203 10^3/cmm (130-400); Red Blood Count 4.02 10^6/uL (4.1-5.3); Red Cell Distribution Width 13.1 % (12.1-15.1)
[2021-09-21 11:36] LABS: Alanine Aminotransferase 15 U/L (0-33); Alkaline Phosphatase 99 IU/L (35-105); Anion Gap 17.2 (5-19); Aspartate Amino Transferase 26 U/L (0-32); Blood Urea Nitrogen 20 mg/dL (8-23); Calcium 8.9 mg/dL (8.5-10.5); Carbon Dioxide 21 mmol/L (22-29); Chloride 103 mmol/L (98-107); Globulin 2.5 g/dL (1.3-4.6); Glucose 107 mg/dL (65-115); Osmolality Calculated 287 mOsm/kg (285-295); Potassium 4.2 mmol/L (3.5-5.1); Sodium 137 mmol/L (136-145); Total Bilirubin 0.9 mg/dL (0.15-1.2); Total Protein 6.5 g/dL (6.6-8.7)
[2021-09-21] MEDS: sodium chloride 0.9% 1,000 ML 30 ML IV (11:59)
--- NOTE | 2021-09-21 13:19 | ANES.PREANE2 ---
Pre-Anesthetic Assessment Height/Weight: Height 1.63 m Weight 79.889 kg Temp Pulse Resp BP Pulse Ox 98.8 F 76 16 131/74 96 09/21/21 13:11 09/21/21 13:15 09/21/21 13:15 09/21/21 13:15 09/21/21 13:15 Preop Diagnosis: Left intertrochanteric hip Operation Date: 09/21/21 12:00 Proposed Procedures p Trochanteric Femoral Nail(Left) - Lev Wolff MD Familial anesthetic complications: None Was Beta Marli taken within 24 hours: N/A Was Clonidine taken within 24 hours: N/A Last intake: Intake Last Liquid Date 09/20/21 Last Liquid Time 19:30 Last Solid Date 09/20/21 Last Solid Time 16:30 Social No alcohol and No tobacco Exam alert, oriented x 3, clear to auscultation bilaterally and regular rate & rhythm Airway Submandibular: within normal limits Cervical ROM: within normal limits Mallampati: Class II Dentition: full Pulmonary Asthma CV/HEM Hypertension Metabolic Morbid Obesity Anesthetic Plan ASA status: 3 Anesthesia: General Medications/Allergies Home Medications Medication Instructions Recorded Confirmed Last Taken Type amlodipine 5 mg tablet 10 mg PO BEDTIME tab 11/25/19 09/21/21 09/20/21 06:00 History epinephrine 0.125 mg/actuation 1 puff INHALATION Q4H PRN 09/21/21 09/21/21 Unknown History aerosol inhaler (Primatene Mist) magnesium 250 mg tablet 500 mg PO DAILY 09/21/21 09/21/21 Unknown History multivitamin with minerals 3 tab PO DAILY 09/21/21 09/21/21 Unknown History (Hair,Skin and Nails) multivitamin with minerals-folic 2 tab PO DAILY 09/21/21 09/21/21 Unknown History acid 200 mcg chewable tablet (Adult Multivitamin Gummies) zinc 50 mg tablet 50 mg PO DAILY 09/21/21 09/21/21 Unknown History Allergies Allergy/AdvReac Type Severity Reaction Status Date / Time cephalexin [From Keflex] Allergy hives Verified 09/21/21 09:49 propranolol Allergy lethargic Verified 09/21/21 09:49 Sulfa (Sulfonamide AdvReac swelling Verified 09/21/21 09:49 Antibiotics) Current Medications Generic Name Dose Route Start Last Admin Trade Name Freq PRN Reason Stop Dose Admin Sodium Chloride 1,000 mls @ 70 mls/hr 09/21/21 08:15 09/21/21 08:55 Sodium Chloride 0.9% IV 70 mls/hr .[id number] CHANDRIKA Administration Sodium Chloride 1,000 mls @ 30 mls/hr 09/21/21 12:00 09/21/21 11:59 Sodium Chloride 0.9% IV 09/22/21 11:59 30 mls/hr .[id number] CHANDRIKA Administration Morphine Sulfate 2 mg 09/21/21 08:12 09/21/21 08:55 Morphine 4 Mg/Ml Sdv 1 Ml IVP 2 mg Q1H PRN Administration SEVERE PAIN PFSH Anesthesia Medical History (Updated 09/21/21 @ 09:42 by Wallace Mireles MD) Asthma Hypertension Diagnosed in her 50s and is controlled with medication. No pertinent past medical history Denies history of: lung, liver, kidney, thyroid, heart or kidney problems, diabetes, DVT/PE, bleeding or clotting disorders. PCP: MARTHA Jackson Surgical History Hx of sinus surgery In 1995 S/P cholecystectomy Laparoscopic procedure in 2013 S/P knee surgery bilateral knee surgery for meniscus tear in 2014 and 2015. Status post hysterectomy 01/09/2020--total vaginal hysterectomy, right salpingo-oophorectomy, uterosacral ligament suspension, anterior and posterior repair with perineorrhaphy and suprapubic catheter [place] Dr. Ir[place] [facility] [place]ology showed benign uterus, cervix, right ovary and tube without any sign of malignancy or hyperplasia. Status post tubal ligation 1982- procedure. 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 Data Anesthesia : 09/21/21 10:35 09/21/21 10:35 Short CBC 09/21/21 Range/Units 10:35 WBC 12.0 H (4.0-10.0) 10^3/uL Hgb 12.2 (11.5-15.3) g/dL Hct 36.6 L (37.0-47.0) % MCV 91.0 (81-99) fl Plt Count 203 (130-400) 10^3/cmm Neut % (Auto) 91.5 % Neut # (Auto) 11.01 H (1.8-7.7) 10^3/uL BMP 09/21/21 10:35 Sodium 137 Potassium 4.2 Chloride 103 Carbon Dioxide 21 L BUN 20 Creatinine 0.4 L Glucose 107 Calcium 8.9 Liver Function 09/21/21 Range/Units 10:35 Total Bilirubin 0.9 (0.15-1.2) mg/dL AST 26 (0-32) U/L ALT 15 (0-33) U/L Alkaline Phosphatase 99 (35-105) IU/L Albumin 4.0 (3.5-5.2) g/dL Cardiac Studies: No Data to Display
--- NOTE | 2021-09-21 13:20 | ANE.PACU2 ---
Inpatient post-anesthesia follow up: Airway intact: Yes Vital signs: Temperature 98.8 F Pulse Rate 76 Respiratory Rate 16 Blood Pressure 131/74 Pulse Oximetry 96 Oxygen Delivery Me thod Simple Mask Oxygen Flow Rate 8 Fraction of Inspir ed Oxygen Hydration adequate: Yes Nausea and vomiting: No Pain level: 3 Mental status: Baseline
[2021-09-21] MEDS: fentaNYL 50 mcg/mL INJ 2mL IVP ×2 (13:21→13:26)
[2021-09-21] MEDS: HYDROmorphone 1 mg/mL INJ 1 mL 0.5 MG IVP (13:37)
--- NOTE | 2021-09-21 13:42 | SUR.PHASEI ---
1310 PT TO PACU 4 PER BED PT WITH LMA IN PLACE 8LMASK TO END OF LMA, GOOD RESP EFFORT NOTED, IV TO RT WRIST #22 PATENT WITH NS 400ML UP AT MOD RATE, LT HIP WITH 3 SITES WITH TEGADERM D/I STRONG REGULAR PULSE TO LT FOOT , FOOT PINK WARM BILAT FOOT PUMPS ON, PT WITH SEPULVEDA CATHETER PATENT OF CLEAR YELLOW URINE, TO TUBING AND BAG, PT ID BRACELET TO LT WRIST , PT ID'D WITH 2 IDENTIFIERS PT STATLOCK FOR SEPULVEDA TO RT INNER THIGH. 1313 PT AWAKES AND LMA REMOVED INTACT, PT ALERT AND C/O OF PAIN OF 10 TO LT HIP, PT REPOSITIONS SELF , RESTLESS VSS. 1346 SEE EARLIER PAIN MEDS GIVEN , PT SLEEPS NOW WITHOUT S/S OF PAIN, VSS. LT HIP DRESSING D/I DISTAL PULSE STRONG AND REGULAR.
[2021-09-21] MEDS: clindamycin 900 MG/50 ML PREMIX 100 MG IV (19:45)
[2021-09-22] VITALS: BP 102/60; PULSE 69; RESP 17; TEMP 36.7; O2SAT 90
[2021-09-22 02:42] LABS: Basophils % 0.2 %; Hematocrit 34.7 % (37.0-47.0); Hemoglobin 11.1 g/dL (11.5-15.3); Lymphocytes # 0.5 10^3/uL (0.8-4.8); Lymphocytes % 4.8 %; Mean Corpuscular Hemoglobin 29.5 pg (28.0-34.0); Mean Corpuscular Volume 92.3 fl (81-99); Mean Platelet Volume 10.4 fL (7.4-10.4); Monocytes # 0.8 10^3/uL (0.2-0.9); Monocytes % 7.7 %; Neutrophils # 8.97 10^3/uL (1.8-7.7); Neutrophils % 86.9 %; Nucleated Red Blood Cells % 0 %; Platelet Count 199 10^3/cmm (130-400); Red Blood Count 3.76 10^6/uL (4.1-5.3); Red Cell Distribution Width 13.4 % (12.1-15.1); White Blood Count 10.3 10^3/uL (4.0-10.0)
[2021-09-22 03:03] LABS: Anion Gap 15.4 (5-19); Blood Urea Nitrogen 16 mg/dL (8-23); Calcium 8.9 mg/dL (8.5-10.5); Carbon Dioxide 23 mmol/L (22-29); Chloride 106 mmol/L (98-107); Glucose 135 mg/dL (65-115); Osmolality Calculated 293 mOsm/kg (285-295); Potassium 4.4 mmol/L (3.5-5.1); Sodium 140 mmol/L (136-145)
[2021-09-22] MEDS: clindamycin 900 MG/50 ML PREMIX 100 MG IV ×2 (03:49→11:29)
[2021-09-22 04:52] VITALS: BP 124/74; PULSE 78; RESP 18; TEMP 36.7; O2SAT 90
[2021-09-22 07:55] VITALS: BP 138/78; PULSE 75; RESP 18; TEMP 37.2; O2SAT 92
[2021-09-22] MEDS: aspirin 325 mg EC Tablet PO (07:59)
[2021-09-22 08:00] VITALS: PULSE 75; RESP 18; O2SAT 92
--- NOTE | 2021-09-22 09:50 | P.PN_ITS ---
Subjective Subjective: Reports she is doing okay. No issues overnight or with surgery. Reports pain is under control. Medications: Reviewed: Yes Vitals/I&O/Wt Last Vital Signs Temp 99.0 F 09/22/21 07:55 Pulse 75 09/22/21 07:55 Resp 18 09/22/21 07:55 BP 138/78 09/22/21 07:55 Pulse Ox 92 09/22/21 07:55 09/21/21 09/22/21 09/22/21 22:59 06:59 14:59 Intake Total / 0 50 / 2100 480 / 480 Output Total 2550 / 2600 Balance 50 / 1999 -2500 / -500 480 / 480 Weight last 48 hrs Weight 79.889 kg Physical Exam Narrative: General exam is a conversant white female, no distress Neck is supple no lymphadenopathy or thyromegaly Cardiovascular regular rate and rhythm, no murmur Lungs are clear to auscultation bilaterally no wheezes or crackles Abdomen is soft nontender positive bowel sounds. No obvious organomegaly exams Thomas noted Extremities no cyanosis clubbing or edema. Dressing is clean and dry Skin without rash Neuro no left foot drop is noted. Urinary Catheter Management: Thomas: Cath Placed During This Visit: yes Reason for Continuing Indwelling Catheter: Required Immobilization for Trauma or Surgery or Anesthesia Urinary Catheter Date of Insertion: 09/21/21 Urinary Catheter Time of Insertion: 08:00 Data : 09/22/21 02:13 09/22/21 02:13 A&P Assessment and plan (1) Intertrochanteric fracture of left hip: Patient presented with an intertrochanteric hip fracture, secondary to lower extremity weakness and/or imbalance. She denies any other injuries other than abrasion left upper extremity She is postoperative day #1, doing well Status: Acute (2) Hypertension: Continue Norvasc postoperatively Status: Acute (3) Asthma: DuoNeb as needed can be used. She characterizes her asthma as not active in the last several months. Status: Acute Plan Other medical problems as noted in past medical history Full code Discussed with her osteoporosis screening which she will do as an outpatient. At this point I will sign off. Please call with any questions. Attestations Medical Necessity Statement*: As per primary Coding Level of Care Code Acute Jewel Hole Gauger for Carolyn Bautista Diagnoses Intertrochanteric fracture of left hip S72.142A Hypertension I10 Asthma J45.849
--- NOTE | 2021-09-22 11:06 | P.DS_ITS ---
Discharge Providers Date of Admission: 09/21/21 05:45 Date of Discharge: September 22, 2021 Attending Provider at Admission: Lev Wolff MD Attending Provider at Discharge: Lev Wolff MD [facility] Primary Care Provider: Lucas Emerson Diagnoses at Discharge Discharge Diagnosis (1) Intertrochanteric fracture of left hip: Status: Acute (2) Hypertension: Status: Acute Permanent problem details: Diagnosed in her 50s and is controlled with medication. (3) Asthma: Status: Acute Reason for Visit Reason for Visit: Hip Fracture Brief History: The patient is a 71-year-old female who fell at home with resulting left intratrochanteric hip fracture. She initially seen in [facility] and direct admitted to our hospital. Hospital Course Hospital Course Ms. Solis was taken to the operating room the day of admission and underwent open reduction internal fixation with intramedullary device. She did very well. By the first postoperative day she was independent with her walker and stable for discharge Physical Exam Narrative: On the day of discharge the hip incision was clean. The incision was free of drainage. They had no particular swelling about the thigh or distal. No distal neurovascular deficits were noted. Urinary Catheter Management: Thomas: Cath Placed During This Visit: yes Reason for Continuing Indwelling Catheter: Required Immobilization for Trauma or Surgery or Anesthesia Urinary Catheter Date of Insertion: 09/21/21 Urinary Catheter Time of Insertion: 08:00 Discharge Data Studies Completed and Pending Completed Studies During Hospitalization Category Date Time Status XR chest 1V portable 66972 Routine Exams 09/21/21 09:33 Completed XR hip LT 2-3V wo/w pel* [id number] Routine Exams 09/21/21 Completed Pending at discharge Category Date Time Status C-arm Fluoroscopy 11513 Routine Exams 09/21/21 11:47 Taken Urinalysis and Microscopic Routine Lab 09/21/21 09:33 Uncollected Radiology Impressions Hip/Pelvis X-Ray 09/21/21 00:00 IMPRESSION: Internal fixation of left hip fracture with no abnormality. Chest X-Ray 09/21/21 09:33 IMPRESSION: No acute chest abnormality. Laboratory Results WBC 10.3 10^3/uL (4.0-10.0) H 09/22/21 02:13 RBC 3.76 10^6/uL (4.1-5.3) L 09/22/21 02:13 Hgb 11.1 g/dL (11.5-15.3) L 09/22/21 02:13 Hct 34.7 % (37.0-47.0) L 09/22/21 02:13 MCV 92.3 fl (81-99) 09/22/21 02:13 MCH 29.5 pg (28.0-34.0) 09/22/21 02:13 MCHC 32.0 g/dL (30.0-36.0) 09/22/21 02:13 RDW 13.4 % (12.1-15.1) 09/22/21 02:13 Plt Count 199 10^3/cmm (130-400) 09/22/21 02:13 MPV 10.4 fL (7.4-10.4) 09/22/21 02:13 Neut % (Auto) 86.9 % 09/22/21 02:13 Lymph % (Auto) 4.8 % 09/22/21 02:13 [place] % (Auto) 7.7 % 09/22/21 02:13 Eos % (Auto) 0.0 % 09/22/21 02:13 Baso % (Auto) 0.2 % 09/22/21 02:13 Neut # (Auto) 8.97 10^3/uL (1.8-7.7) H 09/22/21 02:13 Lymph # (Auto) 0.5 10^3/uL (0.8-4.8) L 09/22/21 02:13 [place] # (Auto) 0.8 10^3/uL (0.2-0.9) 09/22/21 02:13 Eos # (Auto) 0.0 10^3/uL (0.0-0.8) 09/22/21 02:13 Baso # (Auto) 0.0 10^3/uL (0.0-0.1) 09/22/21 02:13 Nucleated RBC % (auto) 0 % 09/22/21 02:13 Nucleated RBCs # 0.0 /100WBC 09/22/21 02:13 Sodium 140 mmol/L (136-145) 09/22/21 02:13 Potassium 4.4 mmol/L (3.5-5.1) 09/22/21 02:13 Chloride 106 mmol/L (98-107) 09/22/21 02:13 Carbon Dioxide 23 mmol/L (22-29) 09/22/21 02:13 Anion Gap 15.4 (5-19) 09/22/21 02:13 BUN 16 mg/dL (8-23) 09/22/21 02:13 Creatinine 0.5 mg/dL (0.5-0.9) 09/22/21 02:13 GFR Calculation Not Reportable 09/22/21 02:13 Glucose 135 mg/dL (65-115) H 09/22/21 02:13 Calculated Osmolality 293 mOsm/kg (285-295) 09/22/21 02:13 Calcium 8.9 mg/dL (8.5-10.5) 09/22/21 02:13 Total Bilirubin 0.9 mg/dL (0.15-1.2) 09/21/21 10:35 AST 26 U/L (0-32) 09/21/21 10:35 ALT 15 U/L (0-33) 09/21/21 10:35 Alkaline Phosphatase 99 IU/L (35-105) 09/21/21 10:35 Total Protein 6.5 g/dL (6.6-8.7) L 09/21/21 10:35 Albumin 4.0 g/dL (3.5-5.2) 09/21/21 10:35 Globulin 2.5 g/dL (1.3-4.6) 09/21/21 10:35 Vitals Last Vital Signs Temp 99.0 F 09/22/21 07:55 Pulse 75 09/22/21 08:00 Resp 18 09/22/21 08:00 BP 138/78 09/22/21 07:55 Pulse Ox 92 09/22/21 08:00 Discharge Plan Discharge Patient Disposition: Home Condition: Stable Prescriptions: New acetaminophen-codeine 300-30 mg Tablet 1 tab PO Q4H PRN (Reason: Moderate Pain) 7 Days Qty: 30 0RF aspirin 325 mg Tablet,Delayed Release (Dr/Ec) 325 mg PO DAILY 30 Days Qty: 30 0RF Continued amlodipine 5 mg tablet 10 mg PO BEDTIME 0RF zinc 50 mg Tablet 50 mg PO DAILY 0RF magnesium 250 mg Tablet 500 mg PO DAILY 0RF Hair,Skin and Nails Tablet 3 tab PO DAILY 0RF Adult Multivitamin Gummies 200 mcg Tablet,Chewable 2 tab PO DAILY 0RF Primatene Mist 0.125 mg/actuation Hfa Aerosol Inhaler 1 puff INHALATION Q4H PRN (Reason: asthma) 0RF Rx Instructions: may repeat once after 1 minute; do not exceed 8 inhalations per 24 hrs Discharge Orders: Discharge Order (Routine); Ordered 09/22/21 Ordered By: Lev Wolff Other Ambulatory Orders: DME: Olu (Order) Location: None Selected Ordered By: Wallace Mireles Referrals: [facility] [Outside] [facility] [place]Outside] Lucas Emerson [Primary Care Provider] - 4-7 days (Consideration of osteoporosis screening, regular follow-up) Lev Wolff MD [Physician] - 2 weeks Discharge Diet: Advance as tolerated Discharge Activity: Limit activity as instructed Patient Instructions: Opioid Safety Activity Restrictions/Additional Instructions: Weight-bear as tolerated left lower extremity Leave current dressing in place. Okay to shower. Discharge Attestations Time Spent in Discharge Care*: other Quality Metrics Clinical Quality Measures [ No reported AMI, CVA or VTE this stay] Coding Level of Care Code Acute [facility] note Diagnoses Intertrochanteric fracture of left hip S72.142A Hypertension I10 Asthma J45.909
[2021-09-22 11:07] VITALS: BP 124/72; PULSE 78; RESP 16; TEMP 36.9; O2SAT 92
--- NOTE | 2021-09-22 13:17 | PC.CHAP ---
Pastoral Care Encounter/Spiritual Assessment Type of Contact [] Declined elementary reading specialist visit [] Patient/Family/Request visit [] Outpatient visit [] Follow-up visit [] Physician referral [] Code/Alert [x] Routine visit [] Staff referral [] Actively dying [] Patient sleeping [] Family support [] [] Out of room [] Palliative care [] [] Receiving care in room [] Pre-surgical visit [] Trauma [] Long length of stay [] ICU visit [] Other: Relational/Emotional Strength [] Patient feels connected with others/family/visitors/staff [] Distress [] Loneliness/isolation [] Abandonment Spirituality of Patient [x] Person of Noy [] Attends Muslim of their Noy [x] Believes in Prayer [] Reads Bible or Orthodoxy materials [] There are Spiritual issues to be addressed Business Programmer Interventions [x] Prayer [] Active listening [] Non-anxious presence [] Spiritual/emotional support [] Crisis/trauma care [] Spiritual counseling [] Bereavement support [] Provided bereavement packet [] Provided Bible/devotional materials [] Provided toy/stuffed animal, coloring book to patient or family member [] Provided Communion [] Anointing/Raysal [] Salvation [x] Completed spiritual assessment [] Other: Impact on Illness or Injury [] Angry [] Fearful [] Anxious [] Often cries [] Exhaustion [] Unable to work [] Unable to attend tenriism [] Unable to walk/stand [] Unable to read [] Unable to drive [] Unable to eat/drink [] Unable to sleep [] Unable to be with family [] Patient intubated [] Other: Summary Time spent with patient
[2021-09-22] MEDS: acetaminophen-codeine 300-30mg Tablet 1 TAB PO (14:17)
--- NOTE | 2021-09-23 17:18 | PM.OP ---
Operative Report Date of procedure: September 21, 2021 Pre-op diagnosis: Preop Diagnosis Left intertrochanteric hip Post-op diagnosis: same Post-op diagnosis: Same Procedure done: Open reduction internal fixation lefthip with intramedullary device Implants: [place] Gamma nail 180 mm x 11 mm, 10.5mm by 95mm lag screw Pathology: none sent Surgeon: Lev Wolff Anesthesia: General Estimated blood loss (mL): 50 Condition: stable Disposition: PACU Procedure: The patient was taken to the operating room. They were given 2g of Ancef. They were positioned on the fracture table with the right lower extremity in gentle traction. A timeout was performed. A 2 cm long incision was made proximal to the greater trochanter scalpel blade. Dissection was carried down to tip the greater trochanter. A guidepin was passed manually from the tip of the trochanter down the shaft. The proximal reamer was utilized to open up the proximal canal. An 11 mm 180 Ofelia gamma nail was passed down the canal without difficulty. Under visualization of fluoroscopy a guidepin was driven up into the head and neck at 125? angle. It was measured at 95 mm in length and a lag screw similar length was then placed and locked into place with the proximal locking screw. [The static guides were then used to pass the distal locking screw.] Intraoperative imaging was obtained verifying satisfactory position of the hardware and reduction of the fracture. Deep tissues were closed with 0 Vicryl as were subcutaneous tissues. The skin was closed with running 4-0 subcutaneous Monocryl suture. Sterile dressings were applied. The patient was extubated and taken to recovery room in stable condition.
== END 2021-09-22 14:42 | disposition home or self-care (01) | DRG 482 ==
PROVIDERS: Internal Medicine; Admitting Provider Orthopaedic Surgery; PCP Physician Assistant Medical; Visit Provider Orthopaedic Surgery
PROC: 0QS706Z Reposition Left Upper Femur with Intramedullary Internal Fixation Device, Open Approach (ICD-10-PCS; CPT 27245; principal; 2021-09-21 12:00)
DX: S72.142A Displaced intertrochanteric fracture of left femur, initial encounter for closed fracture (principal); W18.30XA Fall on same level, unspecified, initial encounter; I10 Essential (primary) hypertension; J45.909 Unspecified asthma, uncomplicated
CPT/HCPCS: 36415; 51702; 71045; 73502; 76000; 80048; 80053; 85025; 93005; 97110; 97116; 97161; 97165; C1713; J1100; J1170; J2270; J2370; J2405; J2704; J3010; J3490; J7030

== ENCOUNTER → 2021-10-27 08:55 | Outpatient (BNVA) | payer MEDICARE, SELFPAY | PROVIDERS: PCP Physician Assistant Medical; Visit Provider Orthopaedic Surgery | DX: Z98.890 Other specified postprocedural states (principal); S72.142A Displaced intertrochanteric fracture of left femur, initial encounter for closed fracture; X58.XXXA Exposure to other specified factors, initial encounter; Z87.81 Personal history of (healed) traumatic fracture; M17.0 Bilateral primary osteoarthritis of knee | CPT/HCPCS: 73502 ==

== ENCOUNTER → 2021-11-24 10:06 | Outpatient (BNVA) | payer MEDICARE, OTHER, SELFPAY | PROVIDERS: PCP Physician Assistant Medical; Visit Provider Orthopaedic Surgery | DX: Z98.890 Other specified postprocedural states (principal); Z87.81 Personal history of (healed) traumatic fracture; M17.0 Bilateral primary osteoarthritis of knee; S72.142A Displaced intertrochanteric fracture of left femur, initial encounter for closed fracture; X58.XXXA Exposure to other specified factors, initial encounter | CPT/HCPCS: 20610; 73502; 73560; 73565; 99214 ==

== ENCOUNTER 2021-11-30 12:57 | Outpatient (CLI) | payer MEDICARE, OTHER, SELFPAY ==
--- NOTE | 2021-11-30 13:04 | XR_ITS ---
WS: [id number] SCREENING DEXA SCAN [employer] CLINICAL INFORMATION: CLOSED FX L HIP W/ROUTINE HEALING/OSTEOPOROSIS COMPARISON: None. FINDINGS: The L1-L4 bone mineral density measures 0.996 g/cm2. This corresponds to a T score score of -1.5 and Z score of -0.2. Left forearm mineral density measures 0.590. This corresponds to a T score of -3.3 and Z score of -1. 1. XR/XR DEXA axial skeleton* 99910 IMPRESSION: Osteopenia in the lumbar spine. Osteoporosis in the LEFT forearm.
== END 2021-11-30 12:58 | disposition home or self-care (01) ==
PROVIDERS: PCP Physician Assistant Medical; Visit Provider Nurse Practitioner Family
DX: S72.002D Fracture of unspecified part of neck of left femur, subsequent encounter for closed fracture with routine healing (principal); X58.XXXD Exposure to other specified factors, subsequent encounter; M80.052G Age-related osteoporosis with current pathological fracture, left femur, subsequent encounter for fracture with delayed healing
CPT/HCPCS: 77080

== ENCOUNTER 2023-03-12 09:35 | Emergency (ER) | payer MEDICARE, OTHER, SELFPAY ==
[2023-03-12 09:52] VITALS: BP 144/79; PULSE 82; TEMP 36.8; O2SAT 96; BMI 30.1
--- NOTE | 2023-03-12 11:21 | W.ED.EXTPRO ---
HPI - Extremity Problem General: Chief complaint: Extremity Problem,Nontraumatic Stated complaint: lower legs red,warm,swollen Time Seen by Provider: 03/12/23 09:52 History of Present Illness: 72-year-old female presents emergency department to have her lower extremities evaluated for concerns of cellulitis. She states that she intermittently wakes up in the morning after being under the covers and sleeping in her bed and is concerned that her lower extremities might be more red than usual and she is concerned that there might be cellulitis to her lower legs. She states that she has had cellulitis to the legs in the past and does not want to get cellulitis again. 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 She denies numbness or tingling to the extremity. It does appear that the wound does currently have a nonbleeding scab to the area. She denies increased pain or drainage from the site. Review of Systems General: Reports: 10 or more systems reviewed and unremarkable except in HPI and below Skin/Breast: Reports: erythema and other (Laceration to the left lower leg) PFS ED PFSH: Medical History Asthma Hypertension Diagnosed in her 50s and is controlled with medication. No pertinent past medical history Denies history of: lung, liver, kidney, thyroid, heart or kidney problems, diabetes, DVT/PE, bleeding or clotting disorders. PCP: MARTHA Jackson Surgical History Hx of sinus surgery In 1995 S/P cholecystectomy Laparoscopic procedure in 2013 S/P knee surgery bilateral knee surgery for meniscus tear in 2014 and 2015. Status post hysterectomy 01/09/2020--total vaginal hysterectomy, right salpingo-oophorectomy, uterosacral ligament suspension, anterior and posterior repair with perineorrhaphy and suprapubic catheter [place] Dr. Irby and [place] [facility] [place]ology showed benign uterus, cervix, right ovary and tube without any sign of malignancy or hyperplasia. Status post tubal ligation 1982- procedure. 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 Physical Exam Narrative: EXAM NARRATIVE: Constitutional: the patient appears well nourished and with normal developement. Vital signs reviewed as documented. HENMT: Normocephalic, atraumatic. Extermal ears with normal appearance without drainage. Nose without drainage, normal appearance. Mucus membranes moist. Neck is supple, No jugular venous distension, trachea is midline, no appreciable carotid bruits. No lymphadenopathy. No meningeal signs. Flexion, extension and lateral rotation is without pain. Eyes: Pupils are equal, round, reactive to light and accomidation. No scleral icterus. Extra-ocular movement are intact. Thorax is symmetrical and with equal rise and fall with respirations. Resp: Lungs are clear to auscultation. No wheezes, rales, crackles or ronchi at pesent. Cardio: Regular rate and rhythm. Positive S1, S2. No appreciable murmurs, rubs or gallops. GI: Abdominal exam reveals normal bowel sounds to all quadrants. No organomegaly. No obvious palpable masses noted. No hepatomegaly appreciated. Soft, nontender to palpation. Extremity: Extremities are non-edematous and both femoral and pedal pulses are 2+ and equal bilaterally. Moves all extremities well, sensation in all extremities. Neuro: Alert and oriented x4, person, place, time and situation. Cranial nerves II through XII are grossly intact, there is no focal neurological deficits that I can appreciate at present. Motor strength in the upper and lower extremities are equal and bilateral 5/5. Psych: Cooperative, calm, normal thought process, appropriate judgment. Skin: No lesions, rashes. No gross abnormalities noted. Left lower leg lateral aspect with 3 cm superficial abrasion with mild healing erythema noted, no obvious cellulitis. Back: Symmetrical, no obvious deformity, No CVA tenderness Course Vital Signs: Vital signs: Vital Signs Temperature 98.3 F 03/12/23 09:52 Pulse Rate 82 03/12/23 09:52 Blood Pressure 144/79 03/12/23 09:52 Pulse Oximetry 96 03/12/23 09:52 Oxygen Delivery Me thod Room Air 03/12/23 09:52 MDM - Extremity (Nontraumatic) Medical Decision Making Physical exam completed and documented, I did have an extensive discussion with the patient regarding cellulitis and the signs of infection and infected cellulitis. I did discuss the importance of proper wound care with the patient and we will provide her discharge instructions to reinforce the information provided. Medical Records I reviewed the patient's medical records. No radiology studies performed this visit Discharge Plan Discharge Patient Disposition: Home Clinical Impression: Abrasion of left lower extremity Condition: Stable Prescriptions: New mupirocin 2 % ointment 1 applic topical BID Qty: 15 0RF No Action amlodipine 10 mg tablet 10 mg PO BEDTIME Nasacort Allergy 55 mcg Aerosol,Prompton 1 spray INTRANASAL BID Calcium 500 + D 500 mg-10 mcg (400 unit) Tablet 1 tab PO QAM Hair,Skin and Nails Tablet 3 tab PO QAM Adult Multivitamin Gummies 200 mcg Tablet,Chewable 2 tab PO QAM Discharge Orders: Discharge ED (Routine); Ordered 03/12/23 Ordered By: Leeroy Medellin Referrals: Charlie Ann MD [Primary Care Provider] - Discharge Diet: Advance as tolerated Discharge Activity: Resume usual activity Patient Instructions: Opioid Safety, Pain Management Coding Level of Care Code ED Drapery Hemmer Automatic for Carolyn Bautista
[2023-03-12] MEDS: neomycin-poly-bacitracin oint 28 gm 1 APPLIC TOPICAL (11:33)
== END 2023-03-12 11:51 | disposition home or self-care (01) ==
PROVIDERS: Emergency Provider Internal Medicine; PCP Family Medicine
DX: S80.812A Abrasion, left lower leg, initial encounter (principal); I10 Essential (primary) hypertension; X58.XXXA Exposure to other specified factors, initial encounter
CPT/HCPCS: 99282